=== PATIENT | female | born 1960 | race Caucasian/White ===

== ENCOUNTER → 2017-10-13 14:06 | Outpatient (CLI) | payer BC, SELFPAY ==
[2017-10-13 16:42] LABS: Estimated Glomerular Filt Rate > 60.0 mL/min (>60)
== END ==
PROVIDERS: PCP Family Medicine; Visit Provider Orthopaedic Surgery
DX: M41.55 Other secondary scoliosis, thoracolumbar region (principal); M48.062 Spinal stenosis, lumbar region with neurogenic claudication
CPT/HCPCS: 36415; 82565; 84520

== ENCOUNTER → 2017-10-19 17:44 | Outpatient (CLI) | payer BC, SELFPAY ==
--- NOTE | 2017-10-19 | DI.MRI.S_ITS ---
PROCEDURE: MR LUMBAR SPINE WO/W CON INDICATIONS: Lumbar region spinal stenosis TECHNIQUE: Noncontrast sagittal T1 spin echo and T2 fast spin echo, sagittal STIR, axial T1 and T2 fast spin echo through the lumbar spine. In cases with scoliosis, additional coronal T2 fast spin echo may be performed. After the administration of contrast, sagittal and axial T1 spin echo with fat saturation through the lumbar spine. COMPARISON: [facility], MR, L-SPINE W&WO CONTRAST, 03/24/2016, 6:58. FINDINGS: Image quality: Excellent. Alignment and curvature: There is severe levoscoliosis with the apex at L2-L3. Marrow: Degenerative endplate signal changes are present. No acute vertebral body compression fractures. No suspicious marrow enhancement. Spinal cord: Conus medullaris terminates at the L1-L2 level. Visualized spinal cord demonstrates normal signal, without suspicious enhancement. Paraspinous soft tissues: No paravertebral masses or abnormal enhancement. Small hepatic cyst noted. L1-L2: Severe loss of disc height and disc desiccation. There is broad posterior disc bulge and disc osteophyte complex. Mild bilateral facet arthropathy. The central canal is patent. Moderate left and mild right foraminal stenosis. There is no significant change from the last exam. L2-L3: Severe loss of disc height and disc desiccation. There is broad posterior disc bulge and disc osteophyte complex. Mild bilateral facet arthropathy and hypertrophy of ligament flavum. The central canal is patent. Severe left and mild right foraminal stenosis. There is no significant change from the last exam. L3-L4: Severe loss of disc height and disc desiccation. There is broad posterior disc bulge and disc osteophyte complex. Moderate bilateral facet arthropathy and mild hypertrophy of ligament flavum. The central canal is mildly narrowed. Severe bilateral foraminal stenosis. There is no significant change from the last exam. L4-L5: Severe loss of disc height and disc desiccation. There is broad posterior disc bulge and disc osteophyte complex. Moderate bilateral facet arthropathy and mild hypertrophy of ligament flavum. The central canal is mildly narrowed. Tcighatc-cd-vfpkox bilateral foraminal stenosis. There is no significant change from the last exam. L5-S1: Mild loss of disc height and disc desiccation. There is broad posterior disc bulge. Severe bilateral facet arthropathy. The central canal is mildly narrowed. Severe left and mild right foraminal stenosis. Left paraspinous enhancement seen on the last exam is less conspicuous, compatible with postsurgical change/scar. There is no significant change from the last exam. IMPRESSION: 1. Severe levoscoliosis with apex at L2-L3. 2. Multilevel degenerative disc disease and facet arthropathy as described. 3. Mild central canal stenosis at L3-L4, L4-L5 and L5-S1. 4. Multilevel foraminal stenoses as described, severe at L2-L3 on the left, L3-L4 bilaterally and L5-S1 on the left, and mtgonlgt-[id number] at L4-L5 bilaterally. Dictated by: Robb Rosa M.D. on 10/20/2017 at 6:32 Approved by: Robb Rosa M.D. on 10/20/2017 at 10:50
== END ==
PROVIDERS: PCP Family Medicine; Visit Provider Orthopaedic Surgery
DX: M48.061 Spinal stenosis, lumbar region without neurogenic claudication (principal); M51.36 Other intervertebral disc degeneration, lumbar region; M47.816 Spondylosis without myelopathy or radiculopathy, lumbar region; M99.73 Connective tissue and disc stenosis of intervertebral foramina of lumbar region
CPT/HCPCS: 72158; A9579

== ENCOUNTER → 2017-10-21 08:40 | Outpatient (CLI) | payer BC, SELFPAY ==
--- NOTE | 2017-10-21 | DI.MG.S_ITS ---
BILATERAL DIGITAL SCREENING MAMMOGRAM 3D/2D WITH CAD: 10/21/2017 CLINICAL: Routine screening. Comparison is made to exams dated: 10/12/2016 mammogram, 10/11/2015 mammogram - [facility], and 09/20/2014 mammogram - [facility]. There are scattered fibroglandular elements in both breasts. Current study was also evaluated with a Computer Aided Detection (CAD) system. No significant masses, calcifications, or other findings are seen in either breast. There has been no significant interval change. IMPRESSION: NEGATIVE There is no mammographic evidence of malignancy. A 1 year screening mammogram is recommended. This exam was interpreted at Station ID: [id number]. NOTE: For mammograms, a report in lay terms will be sent to the patient. Approximately 15% of breast malignancies will not be visualized mammographically. In the management of a palpable breast mass, a negative mammogram must not discourage biopsy of a clinically suspicious lesion. Electronically Signed By: Douglas cortes/mark:10/21/2017 10:33:43 letter sent: Normal Exam ACR BI-RADS Category 1: Negative 3341F
== END ==
PROVIDERS: PCP Family Medicine; Visit Provider Family Medicine
DX: Z12.31 Encounter for screening mammogram for malignant neoplasm of breast (principal)
CPT/HCPCS: 77063; 77067

== ENCOUNTER → 2018-03-09 08:52 | Outpatient (CLI) | payer BC, SELFPAY ==
[2018-03-09 09:19] LABS: Appearance Urine UA CLEAR; Bilirubin Urine UA NEGATIVE (NEGATIVE); Color Urine UA YELLOW; Glucose Urine UA NEGATIVE (Normal); Ketones Urine UA NEGATIVE (NEGATIVE); Leukocyte Esterase Urine UA NEGATIVE (NEGATIVE); Nitrite Urine UA NEGATIVE (Negative); Occult Blood Urine UA NEGATIVE (Negative); Protein Urine UA NEGATIVE (Negative); Specific Gravity Urine UA 1.015 (1.000-1.035); Urobilinogen Urine UA 0.2 E.U./dL (0.2); pH Urine UA 7.5 (4.5-8.0)
[2018-03-09 09:44] LABS: Add Manual Diff / Slide Review NO; Basophils Percent Auto 0.8 % (0-2); Eosinophils Percent Auto 2.4 % (2-4); Hematocrit 41.1 % (36-46); Hemoglobin 14.2 g/dL (12.0-16.0); Lymphocytes Percent Auto 45.9 % (25-40); Mean Corpuscular HGB Conc 34.5 % (30-36); Mean Corpuscular Hemoglobin 32.4 PG (26-34); Mean Corpuscular Volume 94.1 fL (80-100); Neutrophils Absolute Auto 1500 /uL (3000-5900); Neutrophils Percent Auto 42.9 % (50-75); Platelet Count 302 X10^3/uL (150-400); Red Blood Cell Count 4.37 X10^6/uL (4.0-5.2); Red Cell Distribution Width 13.3 % (11.6-14.8); White Blood Cell Count 3.4 X10^3/uL (4.5-11.0)
[2018-03-09 10:20] LABS: Alanine Aminotransferase 28 IU/L (9-52); Albumin 4.7 g/dL (3.5-5.0); Albumin Globulin Ratio 1.5 (1.0-2.8); Alkaline Phosphatase 57 U/L (38-126); Aspartate Aminotransferase 32 IU/L (14-36); BUN Creatinine Ratio 25.7 (6-22); Bilirubin Total 0.9 mg/dL (0.2-1.3); Blood Urea Nitrogen 18 mg/dL (7-17); Calcium 9.6 mg/dL (8.4-10.2); Carbon Dioxide 33 mmol/L (22-32); Chloride 100 mmol/L (98-107); Cholesterol 216 mg/dL (140-199); Estimated Glomerular Filt Rate > 60.0 mL/min (>60); Globulin 3.2 g/dL (1.7-4.1); Glucose 88 mg/dL (70-100); HDL Cholesterol 80 mg/dL (40-60); HEMOLYSIS < 15 (0-50); LDL Cholesterol Calculated 123 mg/dL (<100); Potassium 4.5 mmol/L (3.4-5.1); Sodium 143 mmol/L (137-145); Total Protein 7.9 g/dL (6.3-8.2); Triglycerides 67 mg/dL (35-150)
[2018-03-09 11:06] LABS: Thyroid Stimulating Hormone 2.25 uIU/mL (0.47-4.68)
== END ==
PROVIDERS: PCP Family Medicine; Visit Provider Family Medicine
DX: I10 Essential (primary) hypertension (principal); Z00.00 Encounter for general adult medical examination without abnormal findings
CPT/HCPCS: 36415; 80053; 80061; 81003; 84443; 85025

== ENCOUNTER → 2018-03-16 14:09 | Outpatient (CLI) | payer BC, SELFPAY ==
[2018-03-18 15:31] LABS: Mumps Virus IgG Antibody > 300.00 AU/mL (< 9.00); Rubeola Measles IgG > 300.00 AU/mL (< 25.00)
== END ==
PROVIDERS: PCP Family Medicine; Visit Provider Family Medicine
DX: Z01.84 Encounter for antibody response examination (principal)
CPT/HCPCS: 86735; 86762; 86765; 86787

== ENCOUNTER → 2018-11-28 12:38 | Outpatient (CLI) | payer BC, SELFPAY ==
--- NOTE | 2018-11-28 | DI.MG.S_ITS ---
BILATERAL DIGITAL SCREENING MAMMOGRAM 3D/2D WITH CAD: 11/28/2018 CLINICAL: Routine screening. Comparison is made to exams dated: 10/21/2017 mammogram, 10/12/2016 mammogram, and 10/11/2015 mammogram - [facility]. There are scattered fibroglandular elements in both breasts. Current study was also evaluated with a Computer Aided Detection (CAD) system. No significant masses, calcifications, or other findings are seen in either breast. There has been no significant interval change. IMPRESSION: NEGATIVE There is no mammographic evidence of malignancy. A 1 year screening mammogram is recommended. This exam was interpreted at Station ID: [id number]. NOTE: For mammograms, a report in lay terms will be sent to the patient. Approximately 15% of breast malignancies will not be visualized mammographically. In the management of a palpable breast mass, a negative mammogram must not discourage biopsy of a clinically suspicious lesion. Electronically Signed By: Cong mata/mark:11/28/2018 17:35:26 letter sent: Normal Exam ACR BI-RADS Category 1: Negative [id number]
== END ==
PROVIDERS: PCP Family Medicine; Visit Provider Family Medicine
DX: Z12.31 Encounter for screening mammogram for malignant neoplasm of breast (principal)
CPT/HCPCS: 77063; 77067

== ENCOUNTER → 2019-02-24 10:58 | Outpatient (CLI) | payer BC, SELFPAY ==
[2019-02-24 12:23] LABS: Hematocrit 44.5 % (36-46); Hemoglobin 15.2 g/dL (12.0-16.0); Mean Corpuscular HGB Conc 34.2 % (30-36); Mean Corpuscular Hemoglobin 32.6 PG (26-34); Mean Corpuscular Volume 95.4 fL (80-100); Platelet Count 324 X10^3/uL (150-400); Red Blood Cell Count 4.67 X10^6/uL (4.0-5.2); Red Cell Distribution Width 13.4 % (11.6-14.8); White Blood Cell Count 3.4 X10^3/uL (4.5-11.0)
[2019-02-24 12:25] LABS: Alanine Aminotransferase 13 IU/L (9-52); Albumin 4.5 g/dL (3.5-5.0); Albumin Globulin Ratio 1.3 (1.0-2.8); Alkaline Phosphatase 69 U/L (38-126); Aspartate Aminotransferase 28 IU/L (14-36); BUN Creatinine Ratio 33.3 (6-22); Bilirubin Total 0.6 mg/dL (0.2-1.3); Blood Urea Nitrogen 20 mg/dL (7-17); Calcium 9.5 mg/dL (8.4-10.2); Carbon Dioxide 33 mmol/L (22-32); Chloride 99 mmol/L (98-107); Cholesterol 234 mg/dL (140-199); Estimated Glomerular Filt Rate > 60.0 mL/min (>60); Globulin 3.4 g/dL (1.7-4.1); Glucose 92 mg/dL (80-110); HDL Cholesterol 72 mg/dL (40-60); HEMOLYSIS < 15 (0-50); LDL Cholesterol Calculated 143 mg/dL (<100); Potassium 4.3 mmol/L (3.4-5.1); Sodium 138 mmol/L (137-145); Total Protein 7.9 g/dL (6.3-8.2); Triglycerides 93 mg/dL (35-150)
[2019-02-24 12:47] LABS: Neutrophils Absolute Manual 1598 /uL (3000-5900); RBC Morphology Normal Morphology; Total Cells Counted 100
[2019-02-24 12:55] LABS: Appearance Urine UA CLEAR; Bilirubin Urine UA NEGATIVE (NEGATIVE); Color Urine UA YELLOW; Glucose Urine UA NEGATIVE (Negative); Ketones Urine UA NEGATIVE (NEGATIVE); Leukocyte Esterase Urine UA NEGATIVE (NEGATIVE); Nitrite Urine UA NEGATIVE (Negative); Occult Blood Urine UA NEGATIVE (Negative); Protein Urine UA NEGATIVE (Negative); Urobilinogen Urine UA 0.2 E.U./dL (0.2)
[2019-02-24 12:56] LABS: pH Urine UA 7.5 (4.5-8.0)
[2019-02-24 13:08] LABS: Thyroid Stimulating Hormone 1.73 uIU/mL (0.47-4.68)
== END ==
PROVIDERS: PCP Family Medicine; Visit Provider Family Medicine
DX: Z13.220 Encounter for screening for lipoid disorders (principal); Z13.29 Encounter for screening for other suspected endocrine disorder; Z51.81 Encounter for therapeutic drug level monitoring
CPT/HCPCS: 36415; 80053; 80061; 81003; 84443; 85025

== ENCOUNTER → 2019-04-27 10:18 | Outpatient (CLI) | payer BC, SELFPAY ==
[2019-04-29 14:29] LABS: Parathyroid Hormone Int 10 pg/mL (14-64)
[2019-05-01 13:03] LABS: N-Telopeptide Serum 6.1 nM BCE (6.2-19.0)
== END ==
PROVIDERS: PCP Family Medicine; Visit Provider Internal Medicine Endocrinology, Diabetes & Metabolism
DX: M81.0 Age-related osteoporosis without current pathological fracture (principal)
CPT/HCPCS: 36415; 82306; 82523; 83970

== ENCOUNTER → 2019-07-21 09:16 | Outpatient (CLI) | payer BC, SELFPAY ==
[2019-07-21 10:39] LABS: Cholesterol 161 mg/dL (140-199); HDL Cholesterol 72 mg/dL (40-60); LDL Cholesterol Calculated 77 mg/dL (<100); Triglycerides 58 mg/dL (35-150)
[2019-07-21 10:40] LABS: Alanine Aminotransferase 18 IU/L (<35); Albumin 4.7 g/dL (3.5-5.0); Albumin Globulin Ratio 1.5 (1.0-2.8); Alkaline Phosphatase 68 U/L (38-126); Aspartate Aminotransferase 27 IU/L (14-36); BUN Creatinine Ratio 27.1 (6-22); Bilirubin Total 0.4 mg/dL (0.2-1.3); Blood Urea Nitrogen 19 mg/dL (7-17); Calcium 10.1 mg/dL (8.4-10.2); Carbon Dioxide 31 mmol/L (22-32); Chloride 101 mmol/L (98-107); Estimated Glomerular Filt Rate > 60.0 mL/min (>60); Globulin 3.1 g/dL (1.7-4.1); Glucose 86 mg/dL (80-110); HEMOLYSIS < 15 (0-50); Potassium 4.6 mmol/L (3.4-5.1); Sodium 141 mmol/L (137-145); Total Protein 7.8 g/dL (6.3-8.2)
[2019-07-21 10:56] LABS: Vitamin D 25 Hydroxy (D3) 40.1 ng/mL (30.0-100.0)
[2019-07-26 14:45] LABS: N-Telopeptide Serum 4.2 nM BCE (6.2-19.0)
[2019-07-28 07:33] LABS: Parathyroid Hormone Int 35 pg/mL (14-64)
== END ==
PROVIDERS: PCP Internal Medicine; Referring Provider Nurse Practitioner Family; Visit Provider Internal Medicine Endocrinology, Diabetes & Metabolism
DX: M81.0 Age-related osteoporosis without current pathological fracture (principal); E78.2 Mixed hyperlipidemia
CPT/HCPCS: 36415; 80053; 80061; 82306; 82523; 83970

== ENCOUNTER → 2019-11-30 10:41 | Outpatient (CLI) | payer BC, SELFPAY ==
--- NOTE | 2019-11-30 | DI.MG.S_ITS ---
BILATERAL DIGITAL SCREENING MAMMOGRAM 3D/2D WITH CAD: 11/30/2019 CLINICAL: Routine screening. Comparison is made to exams dated: 11/28/2018 mammogram, 10/21/2017 mammogram, 10/12/2016 mammogram, 04/24/2016 mammogram - [facility], 09/19/2013 mammogram, and 09/20/2014 mammogram - [facility]. There are scattered fibroglandular elements in both breasts. Current study was also evaluated with a Computer Aided Detection (CAD) system. There is an irregular equal density asymmetry in the left breast middle depth central to the nipple seen on the craniocaudal view only. This is more prominent. No other significant masses, calcifications, or other findings are seen in either breast. IMPRESSION: INCOMPLETE: NEEDS ADDITIONAL IMAGING EVALUATION The irregular equal density asymmetry in the left breast is indeterminate. Additional views with possible ultrasound are recommended. This exam was interpreted at Station ID: [id number]. NOTE: For mammograms, a report in lay terms will be sent to the patient. Approximately 15% of breast malignancies will not be visualized mammographically. In the management of a palpable breast mass, a negative mammogram must not discourage biopsy of a clinically suspicious lesion. Electronically Signed By: Del Gaspar M.D. slc/:11/30/2019 12:11:15 letter sent: Additional Imaging Needed ACR BI-RADS Category 0: Incomplete 3340F
== END ==
PROVIDERS: PCP Internal Medicine; Referring Provider Internal Medicine; Visit Provider Internal Medicine
DX: Z12.31 Encounter for screening mammogram for malignant neoplasm of breast (principal)
CPT/HCPCS: 77063; 77067

== ENCOUNTER → 2020-04-11 09:16 | Outpatient (CLI) | payer BC, SELFPAY ==
[2020-04-16 13:15] LABS: N-Telopeptide 8.6 nmol BCE/L (6.2-19.0)
== END ==
PROVIDERS: PCP Internal Medicine; Referring Provider Internal Medicine Endocrinology, Diabetes & Metabolism; Visit Provider Internal Medicine Endocrinology, Diabetes & Metabolism
DX: M81.0 Age-related osteoporosis without current pathological fracture (principal)
CPT/HCPCS: 36415; 82523

== ENCOUNTER → 2020-04-25 09:54 | Outpatient (CLI) | payer BC, SELFPAY ==
[2020-04-25 12:20] LABS: Free T4, Direct Thyroxine 1.05 ng/dL (0.78-2.19)
[2020-04-25 12:34] LABS: Thyroid Stimulating Hormone 2.14 uIU/mL (0.47-4.68)
== END ==
PROVIDERS: PCP Internal Medicine; Referring Provider Internal Medicine Endocrinology, Diabetes & Metabolism; Visit Provider Internal Medicine Endocrinology, Diabetes & Metabolism
DX: Z86.39 Personal history of other endocrine, nutritional and metabolic disease (principal)
CPT/HCPCS: 36415; 84439; 84443

== ENCOUNTER → 2020-09-06 09:22 | Outpatient (CLI) | payer BC, SELFPAY ==
[2020-09-06 11:48] LABS: Alanine Aminotransferase 20 IU/L (<35); Albumin 4.5 g/dL (3.5-5.0); Albumin Globulin Ratio 1.3 (1.0-2.8); Alkaline Phosphatase 72 U/L (38-126); Aspartate Aminotransferase 33 IU/L (14-36); BUN Creatinine Ratio 27.1 (6-22); Bilirubin Total 0.5 mg/dL (0.2-1.3); Blood Urea Nitrogen 19 mg/dL (7-17); Carbon Dioxide 32 mmol/L (22-32); Chloride 100 mmol/L (98-107); Estimated Glomerular Filt Rate > 60.0 mL/min (>60); Globulin 3.6 g/dL (1.7-4.1); Glucose 95 mg/dL (80-110); HEMOLYSIS < 15 (0-50); Potassium 3.9 mmol/L (3.4-5.1); Sodium 138 mmol/L (137-145); Total Protein 8.1 g/dL (6.3-8.2)
== END ==
PROVIDERS: PCP Internal Medicine; Referring Provider Internal Medicine; Visit Provider Internal Medicine
DX: I10 Essential (primary) hypertension (principal)
CPT/HCPCS: 80053

== ENCOUNTER → 2020-10-15 08:02 | Outpatient (CLI) | payer BC, SELFPAY ==
[2020-10-15 08:54] LABS: Cholesterol 168 mg/dL (140-199); HDL Cholesterol 80 mg/dL (40-60); LDL Cholesterol Calculated 76 mg/dL (<100); Triglycerides 58 mg/dL (35-150)
== END ==
PROVIDERS: PCP Internal Medicine; Referring Provider Internal Medicine; Visit Provider Internal Medicine
DX: E78.6 Lipoprotein deficiency (principal)
CPT/HCPCS: 36415; 80061

== ENCOUNTER → 2021-04-10 10:40 | Outpatient (CLI) | payer BC, SELFPAY ==
[2021-04-10 13:02] LABS: Albumin 4.6 g/dL (3.5-5.0); BUN Creatinine Ratio 24.6 (6-22); Blood Urea Nitrogen 17 mg/dL (7-17); Calcium 9.9 mg/dL (8.4-10.2); Carbon Dioxide 31 mmol/L (22-32); Chloride 101 mmol/L (98-107); Estimated Glomerular Filt Rate > 60.0 mL/min (>60); Glucose 83 mg/dL (80-110); HEMOLYSIS < 15 (0-50); Phosphorous 3.7 mg/dL (2.8-4.1); Potassium 5.3 mmol/L (3.4-5.1); Sodium 137 mmol/L (137-145)
[2021-04-15 10:24] LABS: N-Telopeptide 15.3 nmol BCE/L (6.2-19.0)
== END ==
PROVIDERS: PCP Internal Medicine; Referring Provider Internal Medicine Endocrinology, Diabetes & Metabolism; Visit Provider Internal Medicine Endocrinology, Diabetes & Metabolism
DX: M81.0 Age-related osteoporosis without current pathological fracture (principal)
CPT/HCPCS: 36415; 80069; 82523

== ENCOUNTER 2021-04-18 13:11 | Emergency (ER) | payer BC, SELFPAY ==
[2021-04-18 13:56] VITALS: BP 152/66; PULSE 69; RESP 12; TEMP 37.1; O2SAT 99; BMI 26.6
--- NOTE | 2021-04-18 14:01 | DI.RAD.S_ITS ---
PROCEDURE: XR HIP W PEL IF DONE RT 2V INDICATIONS: Fall with hip pain. TECHNIQUE: AP pelvis with lateral view(s) of the right hip(s). COMPARISON: None. FINDINGS: Bones: No fractures or dislocations. Fairly symmetric appearing bilateral hip joint osteoarthritic changes are seen. No evidence of avascular necrosis of femoral head. Pelvic ring appears intact. No suspicious bony lesions. Degenerative endplate changes in visualized lower lumbar spine are seen. Soft tissues: The visualized bowel gas pattern is normal. Suggestion of calcified fibroid in left lower pelvis is seen. IMPRESSION: Fairly symmetric appearing sbie-eh-[id number] bilateral hip joint osteoarthritis. No fracture or dislocation. No evidence of avascular necrosis. Degenerative disc disease in lower lumbar spine. Suggestion of calcified uterine fibroid as above. Dictated by: Fredrick Benítez M.D. on 04/18/2021 at 14:19 Approved by: Fredrick Benítez M.D. on 04/18/2021 at 14:20
--- NOTE | 2021-04-18 15:04 | ED_ITS ---
HPI - Extremity Injury (Lower) <Harrison Vo PA-C - Last Filed: 04/18/21 19:28> General Chief Complaint: Extremity Injury, Lower Stated Complaint: Fell and hip bothering her Time Seen by Provider: 04/18/21 14:05 Source: patient Mode of arrival: Ambulatory Limitations: no limitations History of Present Illness HPI Narrative: Patient is a 60-year-old female presenting to the emergency department today for evaluation of right hip pain. States that she fell on 04/08/2021 experienced swelling and bruising over her right hip buttock. She states that the swelling has since reduced but she began to experience worsening right hip pain 2 days ago. She states that she has been able to walk on the right leg and exercise but she states that her pain is not improving. She denies hitting her head or losing consciousness as a result of the fall. She denies fever, chills, chest pain, shortness breath, nausea, vomiting, diarrhea, abdominal pain, urinary incontinence, fecal incontinence, low back pain. No other concerns voiced at this time. Related Data Previous Rx's Medication Instructions Recorded alendronate 70 mg tablet See Rx Instructions .ROUTE 04/03/19 .COMPLEX #12 tablet tramadol 50 mg tablet 50 mg PO Q6H PRN #30 tab 04/28/19 celecoxib 200 mg capsule 200 mg PO DAILY #30 cap 06/12/19 atorvastatin 20 mg tablet See Rx Instructions .ROUTE 06/14/19 .COMPLEX #90 tablet hydrochlorothiazide 12.5 mg capsule 12.5 mg PO QDAY #90 cap 06/15/19 amlodipine 10 mg-olmesartan 40 mg 1 tab PO QDAY #90 tab 06/16/19 tablet (Ricky) Allergies Allergy/AdvReac Type Severity Reaction Status Date / Time No Known Drug Allergies Allergy Verified 04/18/21 14:01 Review of Systems <Harrison Vo PA-C - Last Filed: 04/18/21 19:28> Constitutional Constitutional: Denies chills, Denies fatigue, Denies fever(s), Denies frequent falls, Denies lethargy and Denies weakness Eyes Eyes: Denies loss of vision ENT Ears, Nose, Mouth, and Throat: Denies dizziness and Denies neck pain Cardiovascular Cardiovascular: Denies chest pain, Denies irregular heart rhythm, Denies lightheadedness, Denies palpitations, Denies dyspnea, Denies dyspnea on exertion and Denies orthopnea Respiratory Respiratory: Denies cough, Denies dyspnea, Denies dyspnea on exertion and Denies wheezing Gastrointestinal Gastrointestinal: Denies abdominal pain, Denies change in bowel habits, Denies diarrhea, Denies nausea and Denies vomiting Genitourinary Genitourinary: Denies hematuria, Denies flank pain, Denies urinary incontinence and Denies urinary urgency Musculoskeletal Musculoskeletal: Denies back pain, Reports arthralgias (Right hip), Denies muscl e weakness, Denies neck pain, Denies numbness and Denies tingling Neurologic Neurologic: Denies behavioral changes, Denies confusion, Denies dizziness, Denies frequent falls, Denies loss of vision, Denies numbness, Denies tingling and Denies weakness Psychiatric Psychiatric: Denies behavioral changes and Denies confusion Endocrine Endocrine: Denies fatigue and Denies palpitations Allergic/Immunologic Allergic/Immunologic: Denies wheezing Patient History <Harrison Vo PA-C - Last Filed: 04/18/21 19:28> Medical History (Updated 04/18/21 @ 15:14 by Harrison Vo PA-C) Anxiety (2011) Chickenpox (Unknown) Graves disease (2013) Hypertension (Unknown) Hyperthyroidism (~2013) Hypothyroidism (2014) Measles (Unknown) Mixed hyperlipidemia (2017) Osteopenia (2010) Osteoporosis (2015) Scoliosis (Unknown) Thyroid nodule (~2012) Surgical History No history of previous surgery Family History Father Age: 86 Heart disease Mother Age: 83 Hypertension Social History Smoking Status: Never smoker Smoking Status: Never smoker Substance Use Type: does not use Exam <Harrison Vo PA-C - Last Filed: 04/18/21 19:28> Narrative Exam Narrative: GENERAL: 60 year old patient appears stated age. Well-developed patient, in no acute distress. HEAD: Atraumatic. Normocephalic. EYES: Pupils equal round and reactive. Extraocular motions intact. No scleral icterus. No injection or drainage. ENT: Nose without bleeding, purulent drainage. Throat without erythema, tonsillar hypertrophy or exudate. Airway patent. NECK: Trachea midline. Non tender CARDIOVASCULAR: Regular rate and rhythm without murmurs, gallops, or rubs. RESPIRATORY: Clear to auscultation. Breath sounds equal bilaterally. No wheezes, rales, or rhonchi. GASTROINTESTINAL: Abdomen soft, non-tender, nondistended. EXTREMITIES: No edema, ecchymosis, or erythema over the right hip. Mild tenderness to palpation appreciated over the posterior aspect of the right hip. No internal or external rotation of the right hip at rest. BACK: Nontender without deformity or crepitance. No flank tenderness. NEURO: AOx3. SKIN: No rash or erythema of visible areas Initial Vital Signs Initial Vital Signs: Vital Signs Temperature 98.7 F 04/18/21 13:56 Pulse Rate 69 04/18/21 13:56 Respiratory Rate 12 04/18/21 13:56 Blood Pressure 152/66 H 04/18/21 13:56 Pulse Oximetry 99 04/18/21 13:56 <DO Latrice Ayala Last Filed: 04/19/21 07:13> Initial Vital Signs Initial Vital Signs: Vital Signs Temperature 98.7 F 04/18/21 13:56 Pulse Rate 69 04/18/21 13:56 Respiratory Rate 12 04/18/21 13:56 Blood Pressure 152/66 H 04/18/21 13:56 Pulse Oximetry 99 04/18/21 13:56 Course <Harrison Vo PA-C - Last Filed: 04/18/21 19:28> Course Course Narrative: Right hip x-ray ordered Orders Ordered: ED Orders 04/18/21 14:01 XR hip w pel if done RT 2V Stat Vital Signs Vital signs: Vital Signs - 8 hr 04/18/21 13:56 Temperature 98.7 F Pulse Rate 69 Respiratory Rate 12 Blood Pressure 152/66 H Pulse Oximetry 99 <DO Latrice Ayala Last Filed: 04/19/21 07:13> Orders Ordered: ED Orders 04/18/21 14:01 XR hip w pel if done RT 2V Stat Vital Signs Vital signs: Vital Signs - 8 hr 04/18/21 13:56 Temperature 98.7 F Pulse Rate 69 Respiratory Rate 12 Blood Pressure 152/66 H Pulse Oximetry 99 MDM - Extremity Injury (Lower) <Harrison Vo PA-C - Last Filed: 04/18/21 19:28> Imaging Data Extremity x-ray #1: Radiologist's Impression: PROCEDURE:? XR HIP W PEL IF DONE RT 2V ? INDICATIONS:? Fall with hip pain. ? TECHNIQUE:? AP pelvis with lateral view(s) of the right hip(s).? ? COMPARISON:? None. ? FINDINGS:? ? Bones:? No fractures or dislocations.? Fairly symmetric appearing bilateral hip joint osteoarthritic changes are seen.? No evidence of avascular necrosis of femoral head.? Pelvic ring appears intact.? No suspicious bony lesions.? Degenerative endplate changes in visualized lower lumbar spine are seen. ? Soft tissues:? The visualized bowel gas pattern is normal.? Suggestion of calcified fibroid in left lower pelvis is seen. ? ? IMPRESSION:? Fairly symmetric appearing ttkb-[id number] bilateral hip joint osteoarthritis.? No fracture or dislocation.? No evidence of avascular necrosis.? Degenerative disc disease in lower lumbar spine.? Suggestion of calcified uterine fibroid as above. ? ? Dictated by: Fredrick Benítez M.D. on 04/18/2021 at 14:19 ? ? Approved by: Fredrick Benítez M.D. on 04/18/2021 at 14:20 ? MDM Narrative Medical decision making narrative: Patient is a 60-year-old female presenting to the emergency department today for evaluation of right hip pain. To consider fracture versus dislocation versus sprain versus strain versus osteoarthritis. Overall physical examination history of reassuring. Patient has been a able to successfully ambulate on the right lower extremity and exercise without significant discomfort. Explain the results of the x-ray to the patient. At this time she feels comfortable being discharged home. Strict return precautions were discussed with the patient prior to discharge. Discharge Plan Departure Patient Disposition: Home Clinical Impression: Acute pain of right hip Instructions: DI for Hip Pain Activity Restrictions/Additional Instructions: *You have been diagnosed with right hip pain *What to do: *Please continue to take your regular medications as directed. [ ] New medication prescriptions sent to your pharmacy: [ ] [ ] New medication written as a paper prescription [X] No new medications given *Please follow up with your primary care provider in 2-3 days, call for an appointment. Let them know you were seen in the Emergency Department and that we ask that you be seen in follow up. We will electronically transmit a record of today's note if your PCP is in our system *If you do not have a primary care provider please contact the [facility] Resource line at [phone]. They will ask some questions about your medical history and help get you set up with a doctor in the community. *Return to Emergency Department if you should have any new, worsening or concerning symptoms, such as fever greater than 101 F, shaking chills, worsening pain, persistent vomiting or other bothersome symptoms. Prescriptions: No Action alendronate 70 mg tablet See Rx Instructions .ROUTE .COMPLEX Qty: 12 4RF Dose Instruction: TAKE 1 TABLET EVERY WEEK Rx Instructions: TAKE 1 TABLET EVERY WEEK tramadol 50 mg tablet 50 mg PO Q6H PRN (Reason: pain) Qty: 30 0RF Rx Instructions: 1-2 tabs q 4-6 h prn pain celecoxib 200 mg capsule 200 mg PO DAILY Qty: 30 2RF Rx Instructions: MUST ESTABLISH CARE WITH NEW PROVIDER AND COMPLETE LABS FOR FUTURE REFILLS atorvastatin 20 mg tablet See Rx Instructions .ROUTE .COMPLEX Qty: 90 1RF Dose Instruction: TAKE 1 TABLET DAILY Rx Instructions: TAKE 1 TABLET DAILY hydrochlorothiazide 12.5 mg capsule 12.5 mg PO QDAY Qty: 90 0RF amlodipine-olmesartan [Ricky] 10-40 mg tablet 1 tab PO QDAY Qty: 90 0RF Referrals: Meseret Palomino MD [Primary Care Provider] - <David Pablo DO - Last Filed: 04/19/21 07:13> [facility] Dr Pablo Co-Sign Statement: I was available for consultation during this patient's emergency department visit. This chart is signed by myself for administrative purposes only. I did not have direct contact with this patient during this visit. They were seen independently by the APC.
== END 2021-04-18 15:26 | disposition home or self-care (01) ==
PROVIDERS: Emergency Provider Physician Assistant; PCP Internal Medicine
DX: M25.551 Pain in right hip (principal); W19.XXXA Unspecified fall, initial encounter
CPT/HCPCS: 73502; 99283

== ENCOUNTER → 2021-04-26 10:11 | Outpatient (CLI) | payer BC, SELFPAY ==
[2021-04-26 11:14] LABS: Alanine Aminotransferase 17 IU/L (<35); Albumin 4.2 g/dL (3.5-5.0); Albumin Globulin Ratio 1.4 (1.0-2.8); Alkaline Phosphatase 77 U/L (38-126); Aspartate Aminotransferase 24 IU/L (14-36); BUN Creatinine Ratio 23.4 (6-22); Bilirubin Total 0.5 mg/dL (0.2-1.3); Blood Urea Nitrogen 15 mg/dL (7-17); Calcium 9.7 mg/dL (8.4-10.2); Carbon Dioxide 32 mmol/L (22-32); Chloride 103 mmol/L (98-107); Cholesterol 171 mg/dL (140-199); Estimated Glomerular Filt Rate > 60.0 mL/min (>60); Globulin 2.9 g/dL (1.7-4.1); Glucose 97 mg/dL (80-110); HDL Cholesterol 73 mg/dL (40-60); HEMOLYSIS < 15 (0-50); LDL Cholesterol Calculated 83 mg/dL (<100); Potassium 4.2 mmol/L (3.4-5.1); Sodium 141 mmol/L (137-145); Total Protein 7.1 g/dL (6.3-8.2); Triglycerides 73 mg/dL (35-150)
[2021-04-28 18:18] LABS: HIV 1 & 2 Ab/Ag 4th Gen Combo NEGATIVE (NEGATIVE); Hep C Virus Ab w/Reflex Quant NEGATIVE s/c (NEGATIVE)
== END ==
PROVIDERS: PCP Internal Medicine; Referring Provider Internal Medicine; Visit Provider Internal Medicine
DX: E78.5 Hyperlipidemia, unspecified (principal); Z11.59 Encounter for screening for other viral diseases
CPT/HCPCS: 36415; 80053; 80061; 86803; 87389

== ENCOUNTER → 2022-06-26 06:56 | Outpatient (CLI) | payer BC, SELFPAY ==
--- NOTE | 2022-06-26 | DI.US.S_ITS ---
PROCEDURE: US PELVIC COMPLETE INDICATIONS: RIGHT LOWER QUADRANT PAIN TECHNIQUE: Real-time scanning was performed of the pelvic organs, with image documentation. Additional endovaginal scanning was necessary due to incomplete visualization of the adnexal and endometrial structures by transabdominal scanning. COMPARISON: None. FINDINGS: Uterus: Uterus is anteverted and normal in size at 6.5 x 2.8 x 3.5 cm. The myometrium is heterogenous with a right anterior intramural fibroid measuring 1.7 x 1.2 x 1.6 cm. The endometrium measures 2.3 mm combined thickness. Ovaries: The right ovary measures 2.1 x 1.7 x 2.2 cm, with a calculated ovarian volume of 4.2 cc. The left ovary measures 2.4 x 1.9 x 2.3 cm, with a calculated ovarian volume of 5.6 cc. The ovaries have a normal sonographic appearance. Less than 12 follicles can be seen in each ovary. No adnexal masses are seen. Other: No pathologic free abdominal or pelvic fluid. IMPRESSION: 1. No acute abnormality to explain right lower quadrant pain. 2. Small intramural fibroid. We strive to produce accurate, complete, and clear reports of imaging services. To assist us in improving patient care, this report was composed using standard report templates and voice recognition software. Therefore, it may contain abnormal punctuation, insertions and/or omissions. Occasional wrong-word or sound-alike substitutions may occur. Though we review the report and make efforts to correct it, we do recommend that the report be read carefully in proper context to recognize any text inaccuracies. Dictated by: Sulaiman Parmar M.D. on 06/26/2022 at 9:01 Approved by: Sulaiman Parmar M.D. on 06/26/2022 at 9:04
== END ==
PROVIDERS: PCP Internal Medicine; Referring Provider Internal Medicine; Visit Provider Internal Medicine
DX: D25.1 Intramural leiomyoma of uterus (principal); R10.31 Right lower quadrant pain
CPT/HCPCS: 76856

== ENCOUNTER → 2022-11-06 13:25 | Outpatient (CLI) | payer BC, SELFPAY ==
--- NOTE | 2022-11-06 15:23 | DI.CT.S_ITS ---
PROCEDURE: CT ABDOMEN PELVIS W CON INDICATIONS: Right lower quadrant pain TECHNIQUE: After the administration of oral and intravenous contrast, axial sections were acquired from the lung bases to the pubic symphysis. Coronal and sagittal reformats were performed. For radiation dose reduction, the following was used: automated exposure control, adjustment of mA and/or kV according to patient size. COMPARISON:None. FINDINGS: Image quality: Excellent. Lung bases: Unremarkable. Heart: No significant findings. ABDOMEN: Liver: Hypoattenuating liver lesions, probably small cysts. Gallbladder: Unremarkable. Biliary ducts: Unremarkable. Pancreas: Unremarkable. Spleen: Subcentimeter hypoattenuating lesion on the inferior pole, most certainly benign in isolation. Adrenal Glands: Unremarkable. Kidneys and Ureters: No nephrolithiasis or hydronephrosis. No complex renal cystic lesions which require follow-up. Stomach and Bowel: Stomach, small bowel loops, and colon are unremarkable. Colonic diverticulosis without evidence of diverticulitis. Normal appendix. Moderate colonic stool load. Peritoneum: No abnormal intraperitoneal fluid. No free air. Ventral Wall: No hernia. Abdominal Nodes: No retroperitoneal or mesenteric adenopathy by size criteria. Vessels: Aorta and inferior vena cava are normal in size. PELVIS: Pelvic Organs: Calcified uterine fibroid. Bladder: Unremarkable. Pelvic Nodes: Simple appearing left ovarian cystic lesion measuring 1.6 cm. Miscellaneous: No inguinal hernias are seen. Bones: Convex left scoliosis of the lumbar spine, with associated degenerative changes. Osteoporosis by Hounsfield units criteria. IMPRESSION: Moderate colonic stool load, particularly of the ascending colon and transverse colon. No acute inflammatory findings to explain the patient's right lower quadrant pain. Normal appendix. No nephrolithiasis. Non complex left ovarian cystic lesion measuring 1.6 cm. This probably represents an O RADS 2 cyst. Further characterization with ultrasound is recommended in this age group. Osteoporosis by Hounsfield units criteria. Dictated by: David Cerna M.D. on 11/06/2022 at 16:39 Approved by: David Cerna M.D. on 11/06/2022 at 16:44
== END ==
PROVIDERS: PCP Internal Medicine; Referring Provider Internal Medicine; Visit Provider Internal Medicine
DX: D25.9 Leiomyoma of uterus, unspecified (principal); R10.31 Right lower quadrant pain; K57.90 Diverticulosis of intestine, part unspecified, without perforation or abscess without bleeding; N83.202 Unspecified ovarian cyst, left side; M41.9 Scoliosis, unspecified; M47.816 Spondylosis without myelopathy or radiculopathy, lumbar region
CPT/HCPCS: 74177; Q9967

== ENCOUNTER → 2025-04-16 14:37 | Outpatient (CLI) | payer MEDICARE, OTHER, SELFPAY ==
--- NOTE | 2025-04-16 | DI.RAD.S_ITS ---
PROCEDURE: XR KNEE LT 1TO2V INDICATIONS: PAIN TECHNIQUE: 2 view(s) of the left knee acquired. COMPARISON: [facility], CR, KNEE 3V RIGHT, 07[facility]04[facility], 16[facility] 3[facility], 04/16/2025, 15:25. FINDINGS: Bones: Mild tricompartmental arthrosis. No displaced fracture or dislocation. Mild osteophytes. Soft tissues: No significant soft tissue calcifications. Small joint fluid. IMPRESSION: Mild tricompartmental arthrosis. If there is high concern for further derangement, consider MRI evaluation. Dictated by: Leonardo Honeycutt RRA Interpreted: Marin Castellanos MD on 04/16/2025 at 16:13 Transcribed by: ABRAM on 04/16/2025 at 16:14 Approved by: Marin Castellanos M.D. on 04/17/2025 at 9:44
--- NOTE | 2025-04-16 | DI.RAD.S_ITS ---
PROCEDURE: XR TIBIA FIBULA LT 2V INDICATIONS: KNEE/LEG PAIN, FALL TECHNIQUE: 2 views of the tibia and fibula were acquired. COMPARISON: [facility], CR, XR KNEE ARTHRITIC SERIES RT, 04/08/2018, 6:46. [facility], CR, XR KNEE ARTHRITIC SERIES BI, 08/24/2018, 12:16. [facility], CR, XR KNEE LT 1TO2V, 04/16/2025, 15:33. FINDINGS: Bones: No fractures or dislocations. There is mild cortical irregularity and lucency with possible early scalloping along the medial bony cortex of the mid to distal femoral shaft. No definitive associated periosteal reaction is seen. Mild medial femorotibial joint degeneration. Soft tissues: No suspicious soft tissue calcifications or masses. IMPRESSION: Mild cortical irregularity and lucency with possible early scalloping along the medial bony cortex of mid to distal femoral shaft without associated periosteal reaction or mass. Findings are indeterminate and short-term follow-up plain film is recommended in 1 month to assess for interval change. If the finding persists, recommend pre and post-contrast MRI for further assessment. Dictated by: Leonardo Honeycutt [facility] Interpreted: Marin Castellanos MD on 04/16/2025 at 15:56 Transcribed by: ABRAM on 04/16/2025 at 16:10 Approved by: Marin Castellanos M.D. on 04/17/2025 at 9:41
--- NOTE | 2025-04-16 14:58 | DI.RAD.S_ITS ---
PROCEDURE: XR KNEE RT 3V INDICATIONS: Swelling knees. TECHNIQUE: 3 views of the right knee and one view of the left knee were acquired. COMPARISON: [facility], CR, XR KNEE ARTHRITIC SERIES BI, 09/28/2024, 7:37. [facility], CR, KNEE 3V RIGHT, 07/04/2015, 16:42. FINDINGS: Bones: No fractures or dislocations. No suspicious bony lesions. Mild narrowing of the right medial and the left medial lateral femoral tibial joints and periarticular osteophyte formation. 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 No periprosthetic fractures or evidence of loosening/infection. Soft tissues: No joint effusion. No suspicious soft tissue calcifications. IMPRESSION: 1. 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 2. 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 3. Mild right knee medial and lateral femorotibial joint degeneration. If there is high concern for further derangement, consider MRI evaluation. Dictated by: Leonardo Honeycutt [facility] Interpreted: Marin Castellanos MD on 04/16/2025 at 16:10 Transcribed by: ABRAM on 04/16/2025 at 16:12 Approved by: Marin Castellanos M.D. on 04/17/2025 at 9:42
== END ==
PROVIDERS: PCP Internal Medicine; Referring Provider Family Medicine; Visit Provider Family Medicine
DX: M17.0 Bilateral primary osteoarthritis of knee (principal); M25.561 Pain in right knee; M25.562 Pain in left knee; Z96.651 Presence of right artificial knee joint
CPT/HCPCS: 73560; 73562; 73590